=== PATIENT | female | born 1970 | race African-American/Black ===

== ENCOUNTER 2022-03-23 08:56 | Emergency (ER) | payer SELFPAY ==
[2022-03-23 09:16] VITALS: BP 122/72; PULSE 89; RESP 17; TEMP 99.9; BMI 35.9
[2022-03-26] MEDS ORDERED: IBUPROFEN 100 MG/5 ML UNIT DOSE CUPS ONE (11:00)
== END 2022-03-23 10:03 | disposition home or self-care (01) ==
LOC: JER 08:56
DX: J09.X2 Influenza due to identified novel influenza A virus with other respiratory manifestations (principal); R05.1 Acute cough; M79.10 Myalgia, unspecified site
CPT/HCPCS: 0241U-QW; 99283-25